=== PATIENT | female | born 1990 | race Caucasian/White ===

== ENCOUNTER 2020-09-15 12:44 | Emergency (ER) | payer OTHER ==
[~2020-09-15] VITALS: Ht 162.6 cm; Wt 81.7 kg
[2020-09-15] MEDS ORDERED: NORCO 5-325 TA1 EAC2 PO (14:31)
[2020-09-15] MEDS ORDERED: IBUPROFEN 800800 M1 PO (14:31)
[2020-09-15 14:52] VITALS: BP 146/105
== END 2020-09-15 14:52 | disposition home or self-care (01) ==
LOC: M.ERS 12:44
DX: S20.211A Contusion of right front wall of thorax, initial encounter (principal); I10 Essential (primary) hypertension; Z98.890 Other specified postprocedural states; Z98.51 Tubal ligation status; X58.XXXA Exposure to other specified factors, initial encounter; Y93.89 Activity, other specified; Y92.89 Other specified places as the place of occurrence of the external cause; Y99.8 Other external cause status